=== PATIENT | male | born 1960 | race Two or more races ===

== ENCOUNTER → 2020-01-17 | Outpatient (CLI) | payer BC ==
[2020-01-17 13:31] LABS: BASOPHILS # (AUTO) 0.04 x10^3/uL (0-0.1); BASOPHILS % (AUTO) 0 % (0-1); EOSINOPHILS # (AUTO) 0.27 x10^3/uL (0-0.4); EOSINOPHILS % (AUTO) 3 % (1-7); LYMPHOCYTES # (AUTO) 2.73 x10^3/uL (1-3.4); LYMPHOCYTES % (AUTO) 32 % (22-44); MD NO; MEAN CORPUSCULAR HEMOGLOBIN 32.5 pg (27.5-34.5); MEAN CORPUSCULAR HGB CONC 34.6 g/dL (33.2-36.2); MEAN PLATELET VOLUME 10.4 fL (7.4-10.4); MONOCYTES # (AUTO) 0.59 x10^3/uL (0.2-0.8); MONOCYTES % (AUTO) 7 % (2-9); NEUTROPHILS # (AUTO) 4.83 x10^3/uL (1.8-6.8); NEUTROPHILS % (AUTO) 57 % (42-75); PLATELET COUNT 207 x10^3/uL (130-400); RED BLOOD COUNT 5.17 x10^6/uL (4.38-5.82); RED CELL DISTRIBUTION WIDTH 12.1 % (9.4-14.8)
[2020-01-17 13:43] LABS: ALANINE AMINOTRANSFERASE 63 U/L (12-78); ALBUMIN 3.8 g/dL (3.4-5.0); ANION GAP 10 mmol/L (5-15); CALCIUM 8.9 mg/dL (8.5-10.1); CHLORIDE 106 mmol/L (98-107); CREATININE 1.39 mg/dL (0.7-1.3)
[2020-01-17 13:45] LABS: ALKALINE PHOSPHATASE 57 U/L (45-117); CHOLESTEROL, TOTAL 130 mg/dL (140-239); HDL CHOL % 20 % (26-37); HDL CHOLESTEROL (DIRECT) 26 mg/dL (40-60); TOTAL PROTEIN 7.5 g/dL (6.4-8.2); TRIGLYCERIDES 468 mg/dL (50-200)
== END | disposition home or self-care (01) ==
LOC: CFH 09:30
PROVIDERS: ATTEND Nurse Practitioner
DX: M1A.9XX0 Chronic gout, unspecified, without tophus (tophi) (principal); I10 Essential (primary) hypertension; E11.69 Type 2 diabetes mellitus with other specified complication
CPT/HCPCS: 36415; 80053; 80061; 82043; 82570; 83036; 84550; 85025